=== PATIENT | female | born 1970 | race American Indian/Alaskan Native ===

== ENCOUNTER 2017-01-20 03:57 | Emergency (ER) | payer BC, OTHER ==
[2017-01-20 04:41] VITALS: BP 138/87
[2017-01-20] MEDS ORDERED: DELTASONE PO ONE (06:59)
--- NOTE | 2017-01-20 07:04 | Emergency Department Report ---
HPI - General Chief Complaint: Upper Respiratory Infection Time Seen by Provider: 01/20/17 06:53 - HPI HPI: Patient here complaining of cough and nasal congestion for 1 month. She says she has severe allergies to pollen. Denies any fever or chills. Denies any shortness of breath or chest pain. Denies any nausea or vomiting. She said she is using [id number] allergy medication and is not working. ED Past Medical Hx - Past Medical History Previous Medical History?: No - Surgical History Past Surgical History?: Yes Additional Surgical History: "gallbladder" - Family History Family history: hypertension - Social History Smoking Status: Never Smoker Substance Use Type: None - Medications Home Medications: Home Medications Medication Instructions Recorded Confirmed Last Taken Type Azithromycin [Zithromax Z-PJ] 250 mg PO DAILY #6 tab 01/20/17 Unknown Rx Fexofenadine/Pseudoephedrine 1 each PO QDAY PRN #30 tab.er.24h 01/20/17 Unknown Rx [Willow-D 24 Hour Tablet] Fluticasone [Flonase] 1 spray NS QDAY #1 bottle 01/20/17 Unknown Rx ED Review of Systems ROS: Stated complaint: CATHY/NASAL CONGESTION Other details as noted in HPI Comment: All other systems reviewed and negative Constitutional: denies: chills, fever Eyes: denies: eye discharge ENT: congestion. denies: ear pain, throat pain Respiratory: cough. denies: shortness of breath, SOB with exertion, SOB at rest , stridor, wheezing Cardiovascular: denies: chest pain, palpitations, edema, syncope Gastrointestinal: denies: nausea, vomiting Musculoskeletal: denies: back pain, arthralgia Skin: denies: rash Neurological: denies: headache, weakness, numbness, paresthesias, confusion, abnormal gait, vertigo Physical Exam - Physical Exam Vital Signs: Vital Signs 01/20/17 04:36 Temperature 98.1 F Pulse Rate 78 Respiratory 18 Rate Blood Pressure 138/87 O2 Sat by Pulse 98 Oximetry General: 46-year-old female well-nourished well-developed in no acute distress. Physical Exam: Head: [Normocephalic atraumatic Mouth: Moist, no pharyngeal exudate or erythema. Uvula is midline and oral airway is patent. No gingival enlargement or dental tenderness. No facial swelling. No peritonsillar abscesses. Neck: Supple, no C-spine tenderness, no tracheal deviation. Nontender to palpate. no adenopathy Ears: Bilateral TMs congested without erythema .bilateral EAC without any redness swelling or drainage Eyes: Bilateral pupils equal and reactive to light, bilateral EOM intact. Bilateral sclera and conjunctiva without injection. Normal accommodation Nose: Mucosa moist, positive congestion no erythema. Positive clear drainage. maxillary and frontal sinus ntender to palpate. Lungs: clear to auscultate bilaterally no rhonchi wheezes or rales. Normal work of breathing extremity; No CCE. +2 pulses. No neurovascular compromise Cardiovascular: S1-S2, regular rate rhythm. No murmurs. Skin: clean Dry and intact no rash no lesions Psych: Normal mood and behavior ED Course Vital Signs 01/20/17 04:36 Temperature 98.1 F Pulse Rate 78 Respiratory 18 Rate Blood Pressure 138/87 O2 Sat by Pulse 98 Oximetry - Reevaluation(s) Reevaluation #1: 01/20/17 07:19 Patient given Deltasone 60 mg. Emergency room ED Medical Decision Making - Medical Decision Making ED course: The diagnosis of pansinusitis and acute cough. I discussed with her treatment plan and diagnosis and supposed understanding. Patient to follow up with her primary care physician and 2-3 days. Charged home with prescription for Z-Pj, Willow-D she has been taking in the past and Flonase. Critical care attestation.: If time is entered above; I have spent that time in minutes in the direct care of this critically ill patient, excluding procedure time. ED Disposition Clinical Impression: Cough Acute pansinusitis Qualifiers: Recurrence: recurrent Qualified Code(s): J01.41 - Acute recurrent pansinusitis Disposition: DISCHARGED TO HOME OR SELFCARE Is pt being admited?: No Does the pt Need Aspirin: No Condition: Stable Instructions: Sinusitis (ED), Acute Cough (ED) Additional Instructions: Please see nostrils fall with saline nasal wash twice a day Take Antibiotic as prescribed. Follow-up with primary care physician and have them refer you to ripening room hand. Prescriptions: Azithromycin [Zithromax Z-PJ] 250 mg PO DAILY #6 tab Fexofenadine/Pseudoephedrine [Willow-D 24 Hour Tablet] 1 each PO QDAY PRN #30 tab.er.24h PRN Reason: Decongestant Fluticasone [Flonase] 1 spray NS QDAY #1 bottle Referrals: PRIMARY CARE, [Primary Care Provider] - 3-5 Days Forms: Accompanied Note, Work/School Release Form(ED)
== END 2017-01-20 07:26 | disposition home or self-care (01) ==
LOC: ED 03:57
DX: J01.41 Acute recurrent pansinusitis (principal); R05 Cough
CPT/HCPCS: 99282; J7512